=== PATIENT | female | born 1990 | race Caucasian/White ===

== ENCOUNTER 2018-03-03 06:00 | Inpatient (IN) ==
[2018-03-03] MEDS ORDERED: miSOPROStol 25 MCG TABLET VG PRN (06:16)
[2018-03-03] MEDS ORDERED: Naloxone 0.4 MG/ML INJ IVP PRN (06:17)
[2018-03-03] MEDS ORDERED: *HR* Nalbuphine 10 MG/ML AMPUL IVP PRN (06:17)
[2018-03-03] MEDS ORDERED: Famotidine 20 MG/2 ML VIAL IVP PRN (06:17)
[2018-03-03] MEDS ORDERED: Ringers Solution, Lactated 1,000 ML ONE (06:29)
[2018-03-03] MEDS ORDERED: Ringers Solution, Lactated 1,000 ML IVC SCH (06:30)
[2018-03-03 06:36] LABS: Basophils % 0.3 %; Eosinophils # 0.1 K/mcL (0.0-0.6); Eosinophils % 0.9 %; Hematocrit 37.8 % (35.3-44.9); Hemoglobin 13.2 g/dL (11.5-15.4); Immature Granulocytes % 0.9 % (0-4); Lymphocytes # 1.7 K/mcL (0.6-4.6); Lymphocytes % 16.4 %; Mean Corpuscular HGB Conc 34.9 g/dL (31.6-35.5); Mean Corpuscular Hemoglobin 30.8 pg (28.0-33.3); Mean Corpuscular Volume 88.1 fL (83.0-100.0); Monocytes # 0.7 K/mcL (0.0-1.3); Neutrophils # 7.9 K/mcL (1.6-8.9); Platelet Count 359 K/mcL (140-400); Red Blood Count 4.29 M/mcL (3.82-4.97); Segmented Neutrophils % 74.5 %
[2018-03-03 06:43] LABS: Amphetamine Screen,Urine Negative ng/mL (Cutoff=1000); Barbiturate Screen,Urine Negative ng/mL (Cutoff=200); Benzodiazepines Screen,Urine Negative ng/mL (Cutoff=200); Cannabinoid Screen,Urine Negative ng/mL (Cutoff = 50); Cocaine Screen,Urine Negative ng/mL (Cutoff= 300); Opiate Screen,Urine Negative ng/mL (Cutoff=300); Phencyclidine Screen,Urine Negative ng/mL (Cutoff=25)
[2018-03-03] MEDS ORDERED: EPHEDrine 50 MG/ML VIAL IVP PRN (08:11)
--- NOTE | 2018-03-03 08:11 | Anesthesia Evaluation PreOp ---
Date of Encounter: 03/03/18 Time of Encounter: 07:31 - Past History Planned Operation: vaginal del, G1 Cardiac History: Denies any Significant Hx Pulmonary History: Smoker, Asthma (no recent problems) BOOTH MANAGER History: Denies Any Significant HX Other Medical History: Other (HSV, no active lesions reported.) Anesthesia History: No Prior Anesthetic Complications, Past Anesthesia Alcohol Use: none Drug use: none Medications and Allergies Albuterol Sulfate [Albuterol Inhaler] 1 puff IH 03/03/18 [History] Vit Calc,Iron,Folic [ Vitamins] 1 each PO 03/03/18 [History] valACYclovir [Valtrex] 500 mg PO DAILY 03/03/18 [History] 3 Allergy/AdvReac Type Severity Reaction Status Date / Time No Known Allergies Allergy Verified 03/03/18 06:14 Anesthesia Results - Labs 03/03/18 06:18 Anesthesia Exam - HEENT Pupil (Motor): Pupils equal Mallampati: II Teeth: Normal Oral Opening: Greater than 3 - BOOTH MANAGER LOC: Oriented BOOTH MANAGER Motor: Normal RUE, Normal LUE, Normal RLE, Normal LLE, Normal Face BOOTH MANAGER Sensory: Normal: RUE, LUE, RLE, LLE, Face - Cardiac Rhythm: Regular Murmur: None - Pulmonary Breath Sounds: bilateral Clear Respiratory Effort: Symmetrical Anesthesia Assess/Plan ASA Score: 2 Modified Stanton Scale for Level of Consciousness: Cooperative, oriented, and tranquil Anesthetic Plan: General, Regional Monitoring Plan: Standard Monitors Recovery Plan: PACU
--- NOTE | 2018-03-03 08:12 | OB/GYN History & Physical ---
Date of Encounter: 03/03/18 Time of Encounter: 08:09 Assessment and Plan (1) 40 weeks gestation of Current visit: Yes Status: Acute 27 y/o @ 40+2 weeks, no lesions on exam, cytotec given 7:45AM, will re evaluate and see what her cervical exam shows before placing dose #2, if favorable, start pitocin anticipate . History of Present Illness HPI: Ms. Freed is a 27 year old female @ 40+2 weeks who presents to L&D for IOL. She does not report LOF, VB or ctxs, feels good FM, she is on valtrex ppx though she has never had an outbreak. Aside from that, her history has been uncomplicated. Past Med Surg Social Fam HX - Past Medical History Psychiatric history: no psych history - Past Surgical History Surgical History: cholecystectomy Additional surgical history: right salpingo and oopherectomy - Social History Smoking Status: Current every day smoker Packs per day: 5-7cigs per day Smokeless Tobacco Status: No Alcohol use: none Drug use: none - Family History Mother Name: Monroe Freed Age: 53 Family Member Ethnicity: Non- Living Status: Still Living Hx Family Cardiac Disorders: No Hx Family Respiratory Disorders: No Hx Family Cancer: No Hx Family GI Disorders: No Hx Family Genitourinary Disorders: No Hx Family Endocrine Disorder: No Hx Family Musculoskeletal Disorders: No Hx Family Neuromuscular Disorders: No Hx Family Neurologic Disorders: No Hx Family HEENT Disorders: No Hx Family Autoimmune Disorders: No Hx Family Reproductive Disorders: No Hx Family Psychosocial Disorders: No Hx Family Medical Disorders: No Obstetrical History - Pregnancies : 1 Medications and Allergies Albuterol Sulfate [Albuterol Inhaler] 1 puff IH 03/03/18 [History] Vit Calc,Iron,Folic [ Vitamins] 1 each PO 03/03/18 [History] valACYclovir [Valtrex] 500 mg PO DAILY 03/03/18 [History] 3 Allergy/AdvReac Type Severity Reaction Status Date / Time No Known Allergies Allergy Verified 03/03/18 06:14 Exam - Constitutional Constitutional: no acute distress - HEENT HEENT: PERRL - Neck Neck exam: full ROM - Lungs Respiratory exam: CTAB - Cardiovascular Cardiovascular exam: RRR - Abdomen Abdomen: Present: gravid - Cervix Dilation: 1 Effacement: 80 Results Result Diagrams: 03/03/18 06:18 All other labs normal. - VTE Reasons for not Prescribing Prophylaxis: Treatment not Indicated - Low risk for VTE
[2018-03-03] MEDS ORDERED: Epidural Premix (fent/bupiv) 110 ML EP SCH (08:15)
[2018-03-03] MEDS ORDERED: Epidural Premix (fent/bupiv) 110 ML EP ONE (08:19)
[2018-03-03] MEDS ORDERED: Lidocaine -MPF 2% 5 ML VIAL ONE (08:22)
--- NOTE | 2018-03-03 12:48 | OB Labor Progress Note ---
Date of Encounter: 03/03/18 Time of Encounter: 12:46 Labor Progress Note - Subjective Subjective: patient is doing well - Vital Signs Vital Signs: VSS - Cervix Cervix: 1-2cm/60% - Heart Tones Heart Tones: CAT 1 - Plan Plan: cytotec #2 given, will re evaluate and wade if possible, anticipate
--- NOTE | 2018-03-03 13:29 | OB Labor Progress Note ---
Date of Encounter: 03/03/18 Time of Encounter: 13:27 Labor Progress Note - Subjective Subjective: Patient is resting comfortably in bed. - Vital Signs Vital Signs: VSS - Cervix Cervix: 1-2/80/-1 anterior - Heart Tones Heart Tones: Category I 140 baseline - Mize Mize: Contractions every 3 minutes per toco - Interventions Interventions: Intracervial wade catheter placed without difficulty. Patient and fetus tolerated well. Inflated with 30cc sterile water - Plan Plan: Continue routine labor management GBS negative Consider AROM after displacement of intracervical wade Patient may have nubain and/or epidural Anticipate vaginal delivery POC per consult with Dr Chavez
[2018-03-03] MEDS ORDERED: Oxytocin 20 units/ LR 1000 mL 20 UNIT/1,000 ML BAG IVC SCH (17:30)
[2018-03-03] MEDS ORDERED: Oxytocin 20 units/ LR 1000 mL 20 UNIT/1,000 ML BAG IVC ONE (17:34)
--- NOTE | 2018-03-03 18:19 | OB Labor Progress Note ---
Date of Encounter: 03/03/18 Time of Encounter: 18:12 Labor Progress Note - Subjective Subjective: patient is doing well - Vital Signs Vital Signs: VSS - Cervix Cervix: 5cm/80 - Heart Tones Heart Tones: CAT 1 - Plan Plan: start pitocin, patient AROM'ed(clear), ok for epidural, anticipate
--- NOTE | 2018-03-03 18:49 | Anesthesia Procedures ---
Date of Encounter: 03/03/18 Time of Encounter: 18:31 Procedures: Anesthesia - Epidural/Spinal Patient ID/Chart reviewed: Yes Patient examined: Yes OB Eval: Gestational age: term OB Eval: : 1 OB Eval: Contractions: Non-stressed pattern Consent Obtained: Yes Supplemental Oxygen: None/Room Air Site Prep: Aseptic Technique, Sterile prep and drape, 0.5% Chlorhexidine/Alcohol Patient position: upright Local Anesthetic: Lidocaine 1% Amount of Local Anesthetic used: 2 Touhy Needle Gauge: 18 Touhy Needle Depth (cm): 7 Catheter Depth at Skin (cm): 11 Test Dose (1.5% Lido + Epi): Volume given (mls): 3 Test Dose Result: Negative Loading Dose: Other: 10ml from solution Loading Dose Administered: Thru Catheter Infusion Med: 0.125% Bupivacaine w/ 2 mcg/ml Fentanyl Infusion Rate (mls/hr): [address]: Tegaderm, Tape Interspace Used: L3-L4 Loss of Resistance (KAREN): Yes (saline) Blood: No CSF: No Paresthesia: No Procedure: vss though out procedure, FHR stable per RN's
--- NOTE | 2018-03-03 22:36 | OB Labor Progress Note ---
Date of Encounter: 03/03/18 Time of Encounter: 22:34 Labor Progress Note - Subjective Subjective: Patient resting comfortably in bed. Difficulty in tracing contractions; patient consents to IUPC. - Vital Signs Vital Signs: VSS - Cervix Cervix: 5/70/-1 mild caput noted. - Heart Tones Heart Tones: FHTs 130's no changes - Courtdale Courtdale: Every 2 to 5 minutes per toco - difficult to trace. - Interventions Interventions: IUPC placed without difficulty; fetus and patient tolerated well. - Plan Plan: Continue routine labor management GBS negative Titrate pitocin Anticipate vaginal delivery POC per consult with Dr Chavez
[2018-03-04] MEDS ORDERED: *HR* Ropivacaine/PF 0.5% 20 ML VIAL ONE (04:10)
[2018-03-04] MEDS ORDERED: Metoclopramide 10 MG/2 ML VIAL IVP ONE (05:18)
[2018-03-04] MEDS ORDERED: Lidocaine/EPI 1:200k 2% PF 20 ML VIAL ONE (05:18)
--- NOTE | 2018-03-04 05:22 | OB Labor Progress Note ---
Date of Encounter: 03/04/18 Time of Encounter: 05:19 Labor Progress Note - Subjective Subjective: patient was sleeping at time of exam - Vital Signs Vital Signs: VSS - Cervix Cervix: 5cm - Heart Tones Heart Tones: 130/mod/deja/+accels, no recuurent late decels - Plan Plan: I had a discussion with the patient and her family that she has been unchanged now for over 6hrs @ 5cm. An IUPC has been placed and with pitocin, she is still unchanged. I recommended do a with indications for arrest of dilation and CAT 2 tracing. She agreed. Consents signed.
[2018-03-04] MEDS ORDERED: Ringers Solution, Lactated 1,000 ML ONE (05:26)
[2018-03-04] MEDS ORDERED: *HR* Oxytocin 10 UNIT/ML VIAL IM ONE (05:26)
[2018-03-04] MEDS ORDERED: *HR* Morphine Sulfate/PF 10 MG/10 ML AMPUL ONE (05:56)
[2018-03-04] MEDS ORDERED: *HR* FentaNYL (PF) 100 MCG/2 ML VIAL ONE (05:56)
[2018-03-04] MEDS ORDERED: Acetaminophen IV 1,000 MG/100 ML INFUS..BTL IVPB ONE (06:04)
[2018-03-04] MEDS ORDERED: *HR* Promethazine 25 MG/ML VIAL IVP PRN (06:04)
[2018-03-04] MEDS ORDERED: *HR* HYDROmorphone (PF) 1 MG/ML SYRINGE IVP PRN (06:04)
[2018-03-04] MEDS ORDERED: Ondansetron 4 MG/2 ML VIAL ONE (06:05)
[2018-03-04] MEDS ORDERED: *HR* Morphine 2 MG/ML SYRINGE IVP PRN (06:56)
--- NOTE | 2018-03-04 07:55 | OB/GYN Procedure Note ---
Section - Date of procedure: 03/04/18 Preop diagnosis: arrest of dilation, category 2 FHT tracing Post-op diagnosis: same Procedure: primary low transverse Surgeon: Ingrid Chavez Quantitated Blood Loss: 200 Was there an assistant to the ceo present: Yes [employer] Shearer: Brittany Vincent Director Of Regulatory Affairs: Bjorn Workman Anesthesia Type: Epidural section complications: none Disposition: L&D Recovery Room Specimens: Placenta - (s) A Delivery Date: 03/04/18 Delivery Time: 05:48 Presentation: vertex Position: ROT Gender: Female Gram Weight: 3.545 kg at 1 minute: 8 at 5 minutes: 9 Shoulder Dystocia: not encountered - Narrative Narrative: The patient was taken to the operating room where epidural anesthesia was found to be adequate. The patient was prepped and draped in the usual sterile fashion in the dorsal supine position with a left-workman tilt. A Pfannenstiel skin incision was made with the scalpel and carried through to the underlying layer of fascia. The fascia was incised in the midline and extended laterally. Katie clamps were used to elevate the superior aspect of the fascial incision, which was elevated, and the underlying rectus muscles were dissected off bluntly and using Bowman scissors. Attention was then turned to the inferior aspect of the fascial incision, which in similar fashion was grasped with Katie clamps, elevated, and the underlying rectus muscles were dissected off bluntly and using Bowman scissors. The rectus muscles were dissected in the midline. The peritoneum was bluntly dissected, entered, and extended superiorly and inferiorly with good visualization of the bladder. The bladder blade was inserted. The vesicouterine peritoneum was identified with pickups and entered sharply using Metzenbaum scissors. This incision was extended laterally and the bladder flap was created digitally. The bladder blade was reinserted. The lower uterine segment was incised in a transverse fashion using the scalpel and extended using manual traction. Clear fluid was noted. The was subsequently delivered atraumatically. The nose and mouth were bulb suctioned. The cord was clamped and cut. The was subsequently handed to the awaiting nursery nurse. The placenta was removed spontaneously intact with a 3- vessel cord noted. The uterus was exteriorized and cleared of all clots and debris. The uterine incision was repaired in 2 layers using 0 vicryl suture. Hemostasis was visualized. The uterus was returned to the abdomen. The uterine incision was reexamined and was noted to be hemostatic. The rectus muscles were reapproximated in the midline using 3-0 Vicryl. The fascia was closed with 0 Vicryl, the subcutaneous layer was closed with 3-0 plain vicryl, and the skin was closed with 4-0 vicryl. Sponge, lap, and instrument counts were correct x2. The patient was stable at the completion of the procedure and was subsequently transferred to the recovery room in stable condition.
[2018-03-04] MEDS ORDERED: Oxytocin 20 units/ LR 1000 mL 20 UNIT/1,000 ML BAG IVC SCH ×2 (09:42)
[2018-03-04] MEDS ORDERED: Ondansetron 4 MG/2 ML VIAL IVP PRN (09:42)
[2018-03-04] MEDS ORDERED: Simethicone 80 MG TAB.CHEW PO PRN (09:42)
[2018-03-04] MEDS ORDERED: Metoclopramide 10 MG/2 ML VIAL IVP PRN (09:42)
[2018-03-04] MEDS ORDERED: Sennosides 8.6 MG TABLET PO PRN (09:42)
[2018-03-04] MEDS ORDERED: Ringers Solution, Lactated 1,000 ML IVC SCH (09:42)
[2018-03-04] MEDS ORDERED: Acetaminophen 325 MG TABLET PO PRN (09:42)
[2018-03-04] MEDS: *HR* OxyCODONE/APAP 5/325 TABLET PO PRN ×2 (10:37→14:42)
[2018-03-04] MEDS ORDERED: Methylergonovine 0.2 MG/ML AMPUL IM ONE (13:55)
[2018-03-05] MEDS: *HR* OxyCODONE/APAP 5/325 TABLET PO PRN ×4 (00:24→21:22)
[2018-03-05 07:26] LABS: Basophils % 0.1 %; Eosinophils # 0.1 K/mcL (0.0-0.6); Eosinophils % 0.5 %; Hematocrit 30.8 % (35.3-44.9); Lymphocytes # 1.1 K/mcL (0.6-4.6); Lymphocytes % 7.1 %; Mean Corpuscular HGB Conc 34.4 g/dL (31.6-35.5); Mean Corpuscular Hemoglobin 30.2 pg (28.0-33.3); Mean Corpuscular Volume 87.7 fL (83.0-100.0); Mean Platelet Volume 9.8 fL (9.4-12.4); Monocytes # 0.8 K/mcL (0.0-1.3); Monocytes % 5.3 %; Neutrophils # 13.2 K/mcL (1.6-8.9); Platelet Count 294 K/mcL (140-400); Red Blood Count 3.51 M/mcL (3.82-4.97); Red Cell Distribution Width 14.3 % (11.5-14.5)
[2018-03-05 07:29] LABS: Hemoglobin 10.6 g/dL (11.5-15.4)
[2018-03-05] MEDS: valACYclovir 500 MG TABLET PO SCH (08:49)
[2018-03-05] MEDS: Prenatal Vit/FA 1 EACH TABLET PO SCH (08:49)
--- NOTE | 2018-03-05 12:04 | OB/GYN Progress Note ---
Date of Encounter: 03/05/18 Time of Encounter: 12:02 - Assessment and Plan (1) Status post primary low transverse section Current Visit: Yes Status: Acute Continue routine care Patient meeting day 1 milestones anticipate discharge home tomorrow (2) Breast feeding status of mother Current Visit: Yes Status: Acute support prn Subjective - Subjective Principal diagnosis: Postop/ day 1 Interval history: Patient up walking around the room. Patient denies any needs at this time. Patient reports + Flatus. Patient reports: appetite normal, voiding normally, pain well controlled, ambulating normally : doing well, nursing well Objective - Vital Signs Latest vital signs: Vital Signs Temp Pulse Resp BP Pulse Ox 03/05/18 08:10 98.3 F 72 16 110/64 97 03/05/18 05:00 98.4 F 77 16 99/66 98 03/05/18 00:23 98.5 F 83 16 105/69 96 03/04/18 20:12 98.4 F 88 16 109/66 96 03/04/18 16:27 14 Intake and Output 03/04/18 03/05/18 03/05/18 23:59 07:59 15:59 Intake Total 0 / 0 1000 / 1000 Output Total 1550 / 1550 1700 / 1700 400 / 400 Balance -1550 / -1550 -1700 / -1700 600 / 600 Intake: IV Fluids 1000 / 1000 Lactated Ringers 1,000 ML @ 125 1000 / 1000 mls/hr IVC .Q8H [facility] Rx#: [id number] Oral 0 / 0 Output: Urine 700 / 700 500 / 500 400 / 400 Catheter 850 / 850 1200 / 1200 Other: Weight 97.5 kg Patient Weight 03/05/18 23:59 Weight 97.5 kg - Exam Lungs: bilateral: normal Chest: Normal S1, Normal S2 Extremities: Present: normal Abdomen: Present: normal appearance, soft, gravid Incision: Present: normal, dry, dressed (medipore dressing) Uterus: Present: normal, firm Fundal Height: 1 (U/1) - Labs Labs: Laboratory Results - last 24 hr 03/05/18 06:54 WBC 15.4 H RBC 3.51 L Hgb 10.6 L D Hct 30.8 L MCV 87.7 MCH 30.2 MCHC 34.4 RDW 14.3 Plt Count 294 MPV 9.8 Immature Gran % 1.0 Seg Neutrophils % 86.0 Lymphocytes % 7.1 Monocytes % 5.3 Eosinophils % 0.5 Basophils % 0.1 Neutrophils # 13.2 H Lymphocytes # 1.1 Monocytes # 0.8 Eosinophils # 0.1 Basophils # 0.0
[2018-03-05] MEDS: Ibuprofen 600 MG TABLET PO PRN ×2 (13:27→21:22)
[2018-03-06] MEDS: Ibuprofen 600 MG TABLET PO PRN (06:04)
[2018-03-06] MEDS: *HR* OxyCODONE/APAP 5/325 TABLET PO PRN (06:05)
[2018-03-06] MEDS: Prenatal Vit/FA 1 EACH TABLET PO SCH (08:09)
[2018-03-06] MEDS: valACYclovir 500 MG TABLET PO SCH (08:10)
[2018-03-06 08:14] VITALS: BP 118/79
--- NOTE | 2018-03-06 08:41 | Discharge Summary ---
Date of Encounter: 03/06/18 Time of Encounter: 08:37 - Discharge Diagnosis (1) Status post primary low transverse section Priority: Primary Status: Acute Comments: Continue routine postop/ care discharge home today follow up with Dr. Chavez in 2 weeks for incision check (2) Breast feeding status of mother Priority: Secondary Status: Acute Comments: support prn - Discharge Medications Prescriptions: OxyCODONE/APAP 5/325 [Percocet 5/325 MG] 1 each PO Q4HR PRN 5 Days #30 tablet PRN Reason: Moderate pain 4-6 Ibuprofen [Motrin] 600 mg PO Q6HR PRN #60 tablet PRN Reason: Cramping Breast Pump [BREAST PUMP] 1 each .ROUTE AD #1 each Docusate [Colace] 100 mg PO BID #60 capsule Home Medications: Albuterol Sulfate [Albuterol Inhaler] 1 puff IH 03/03/18 [History] Vit Calc,Iron,Folic [ Vitamins] 1 each PO 03/03/18 [History] valACYclovir [Valtrex] 500 mg PO DAILY 03/03/18 [History] Breast Pump [BREAST PUMP] 1 each .ROUTE AD #1 each 03/06/18 [Rx] Docusate [Colace] 100 mg PO BID #60 capsule 03/06/18 [Rx] Ibuprofen [Motrin] 600 mg PO Q6HR PRN #60 tablet 03/06/18 [Rx] OxyCODONE/APAP 5/325 [Percocet 5/325 MG] 1 each PO Q4HR PRN 5 Days #30 tablet [Rx] Allergies/Adverse Reactions: 3 Allergy/AdvReac Type Severity Reaction Status Date / Time No Known Allergies Allergy Verified 03/03/18 06:14 Data Procedures and tests throughout hospitalization: Laboratory Tests 03/03/18 03/03/18 03/05/18 06:18 06:20 06:54 WBC 10.6 15.4 H RBC 4.29 3.51 L Hgb 13.2 10.6 L D Hct 37.8 30.8 L MCV 88.1 87.7 MCH 30.8 30.2 MCHC 34.9 34.4 RDW 14.0 14.3 Plt Count 359 294 MPV 10.0 9.8 Immature Gran % 0.9 1.0 Seg Neutrophils % 74.5 86.0 Lymphocytes % 16.4 7.1 Monocytes % 7.0 5.3 Eosinophils % 0.9 0.5 Basophils % 0.3 0.1 Neutrophils # 7.9 13.2 H Lymphocytes # 1.7 1.1 Monocytes # 0.7 0.8 Eosinophils # 0.1 0.1 Basophils # 0.0 0.0 Urine Opiates Screen Negative Ur Barbiturates Screen Negative Ur Phencyclidine Scrn Negative Ur Amphetamines Screen Negative U Benzodiazepines Scrn Negative Urine Cocaine Screen Negative U Marijuana (THC) Screen Negative Ur Drug Screen Interp See Below Date of admission: 03/03/18 06:02 Primary care physician: Earline Miranda CNP Discharging clinician: Jordyn Rojas Anticipated date of discharge: 03/06/18 - Patient Status Disposition: Home, Self-Care Condition: Good Functional capacity at discharge: independent ambulation - Discharge Instructions Follow Up With: Earline Miranda CNP [Primary Care Provider] - Ingrid Chavez MD [Partnered Physician] - - Diet and Activity Activity: increase activity as tolerated Diet: regular diet Hospital Course Procedures: [facility] report reviewed by ALEKSANDR Brown Delivery: section Episiotomy: none Laceration: none Other procedures: none complications: none Discharge diagnosis: IUP at term delivered baby: female (breast feeding) Time Attestation: Total time spent providing and/or coordinating discharge services: Time Spent: Less than 30 minutes - VTE Reasons for not Prescribing Prophylaxis: Treatment not Indicated - Low risk for VTE Documentation of Mechanical Device: Intermittent pneumatic compression device Exam - Constitutional Vitals: Temp Pulse Resp BP Pulse Ox 98.1 F 70 16 118/79 97 03/06/18 08:13 03/06/18 08:13 03/06/18 08:13 03/06/18 08:13 03/06/18 08:13 General appearance IM: A&O X 3, pleasant, answers questions appropriately - Respiratory Respiratory exam: Present: CTAB - Cardiovascular Cardiovascular exam IM: Present: RRR, +S1, +S2 - GI/Abdominal GI/Abdominal exam IM: normal bowel sounds - Uterine Tone: Firm Uterus Position: 2 Fingers Below Umbilicus, Midline - Extremities Exam Extremities exam IM: Present: full ROM, normal capillary refill, normal inspection - Neurological Exam Neurological exam: alert, oriented X3, reflexes normal
== END 2018-03-06 10:00 | disposition home or self-care (01) | DRG 765 ==
LOC: 1NENULAB 06:02 → 1NENUOBS 03-04 08:57
PROVIDERS: ADMIT Student in an Organized Health Care Education/Training Program; ATTEND Student in an Organized Health Care Education/Training Program

== ENCOUNTER 2020-09-09 06:55 | Inpatient (IN) ==
[2020-09-09] MEDS ORDERED: CeFAZolin 2,000 MG/50 ML BAG IVPB ONE (07:15)
[2020-09-09] MEDS ORDERED: Oxytocin 20 units/ LR 1000 mL 20 UNIT/1,000 ML BAG IVC SCH ×2 (07:15→17:31)
[2020-09-09] MEDS ORDERED: Ringers Solution, Lactated 1,000 ML IVC ONE (07:15)
[2020-09-09] MEDS ORDERED: Metoclopramide 10 MG/2 ML VIAL IVP ONE (07:15)
[2020-09-09] MEDS ORDERED: Famotidine 20 MG/2 ML VIAL IVP ONE (07:15)
[2020-09-09] MEDS ORDERED: Oxytocin 20 units/ LR 1000 mL 20 UNIT/1,000 ML BAG IVC ONE (07:15)
[2020-09-09] MEDS: Ringers Solution, Lactated 1,000 ML IVC SCH ×2 (07:43→11:15)
[2020-09-09 07:44] LABS: Basophils % 0.3 %; Eosinophils # 0.1 K/mcL (0.0-0.6); Hematocrit 39.3 % (35.3-44.9); Hemoglobin 13.4 g/dL (11.5-15.4); Immature Granulocytes % 1.7 % (0-4); Lymphocytes # 2.1 K/mcL (0.6-4.6); Lymphocytes % 16.2 %; Mean Corpuscular HGB Conc 34.1 g/dL (31.6-35.5); Mean Corpuscular Hemoglobin 31.1 pg (28.0-33.3); Mean Corpuscular Volume 91.2 fL (83.0-100.0); Mean Platelet Volume 10.4 fL (9.4-12.4); Monocytes # 0.8 K/mcL (0.0-1.3); Monocytes % 5.9 %; Neutrophils # 9.8 K/mcL (1.6-8.9); Platelet Count 305 K/mcL (140-400); Red Blood Count 4.31 M/mcL (3.82-4.97); Red Cell Distribution Width 13.7 % (11.5-14.5); Segmented Neutrophils % 74.9 %; White Blood Count 13.1 K/mcL (4.3-11.1)
[2020-09-09 08:34] LABS: Amphetamine Screen,Urine Negative ng/mL (Cutoff=1000); Barbiturate Screen,Urine Negative ng/mL (Cutoff=200); Benzodiazepines Screen,Urine Negative ng/mL (Cutoff=200); Cannabinoid Screen,Urine Negative ng/mL (Cutoff = 50); Cocaine Screen,Urine Negative ng/mL (Cutoff= 300); Opiate Screen,Urine Negative ng/mL (Cutoff=300); Phencyclidine Screen,Urine Negative ng/mL (Cutoff=25)
[2020-09-09] MEDS ORDERED: *HR* FentaNYL (PF) 100 MCG/2 ML VIAL ONE (09:05)
[2020-09-09] MEDS ORDERED: *HR* Morphine Sulfate/PF 10 MG/10 ML AMPUL ONE (09:05)
[2020-09-09] MEDS ORDERED: *HR* Oxytocin 10 UNIT/ML VIAL IM ONE (12:56)
[2020-09-09] MEDS ORDERED: Acetaminophen IV 1,000 MG/100 ML BAG IVPB ONE (13:00)
[2020-09-09] MEDS ORDERED: Promethazine 6.25 MG in Water for inj. (sterile) 20 ML IVPB PRN (14:21)
[2020-09-09] MEDS ORDERED: *HR* Meperidine 25 MG/ML SYRINGE IVP PRN (14:21)
[2020-09-09] MEDS ORDERED: Naloxone 0.4 MG/ML INJ IVP PRN (14:21)
[2020-09-09] MEDS ORDERED: *HR* FentaNYL (PF) 100 MCG/2 ML VIAL IVP PRN (14:21)
[2020-09-09] MEDS ORDERED: Ondansetron 4 MG/2 ML VIAL IVP PRN ×2 (14:21→17:31)
[2020-09-09] MEDS ORDERED: *HR* OxyCODONE Immed Rel 5 MG TABLET PO PRN (14:21)
[2020-09-09] MEDS ORDERED: Ketorolac 30 MG/ML VIAL IVP ONE (14:58)
[2020-09-09] MEDS ORDERED: Rho Immune Globulin 1,500 UNIT SYRINGE IM ONE (17:31)
[2020-09-09] MEDS ORDERED: Sennosides 8.6 MG TABLET PO PRN (17:31)
[2020-09-09] MEDS ORDERED: Simethicone 80 MG TAB.CHEW PO PRN (17:31)
[2020-09-09] MEDS ORDERED: Metoclopramide 10 MG/2 ML VIAL IVP PRN (17:31)
[2020-09-09] MEDS: Ibuprofen 600 MG TABLET PO PRN ×2 (17:41→23:29)
[2020-09-09] MEDS: *HR* OxyCODONE/APAP 5/325 TABLET PO PRN ×2 (17:41→23:29)
[2020-09-09] MEDS: valACYclovir 500 MG TABLET PO SCH ×2 (18:02→18:03)
[2020-09-09] MEDS: Prenatal Vit/FA 1 EACH TABLET PO SCH (18:02)
[2020-09-10 04:40] LABS: Basophils # 0.1 K/mcL (0.0-0.2); Basophils % 0.5 %; Eosinophils # 0.1 K/mcL (0.0-0.6); Eosinophils % 0.9 %; Hematocrit 33.8 % (35.3-44.9); Immature Granulocytes % 1.4 % (0-4); Lymphocytes # 1.7 K/mcL (0.6-4.6); Lymphocytes % 17.6 %; Mean Corpuscular HGB Conc 33.7 g/dL (31.6-35.5); Mean Corpuscular Hemoglobin 31.6 pg (28.0-33.3); Mean Corpuscular Volume 93.6 fL (83.0-100.0); Mean Platelet Volume 10.4 fL (9.4-12.4); Monocytes # 0.6 K/mcL (0.0-1.3); Monocytes % 6.4 %; Neutrophils # 7.2 K/mcL (1.6-8.9); Platelet Count 258 K/mcL (140-400); Red Blood Count 3.61 M/mcL (3.82-4.97); Red Cell Distribution Width 13.9 % (11.5-14.5); Segmented Neutrophils % 73.2 %; White Blood Count 9.9 K/mcL (4.3-11.1)
[2020-09-10 04:44] LABS: Hemoglobin 11.4 g/dL (11.5-15.4)
[2020-09-10] MEDS: *HR* OxyCODONE/APAP 5/325 TABLET PO PRN ×3 (08:28→20:53)
[2020-09-10] MEDS: Ibuprofen 600 MG TABLET PO PRN ×3 (08:29→22:18)
[2020-09-10] MEDS: valACYclovir 500 MG TABLET PO SCH (09:51)
[2020-09-10] MEDS: Prenatal Vit/FA 1 EACH TABLET PO SCH (09:51)
[2020-09-11] MEDS: Ibuprofen 600 MG TABLET PO PRN (05:24)
[2020-09-11 08:12] VITALS: BP 122/82
[2020-09-11] MEDS: valACYclovir 500 MG TABLET PO SCH (08:37)
[2020-09-11] MEDS: *HR* OxyCODONE/APAP 5/325 TABLET PO PRN (08:37)
[2020-09-11] MEDS: Prenatal Vit/FA 1 EACH TABLET PO SCH (08:38)
== END 2020-09-11 12:30 | disposition home or self-care (01) | DRG 785 ==
LOC: SAMDAY 06:55 → 1NENULAB 06:59 → 1NENUOBS 16:16
PROVIDERS: ADMIT Student in an Organized Health Care Education/Training Program; ATTEND Student in an Organized Health Care Education/Training Program